=== PATIENT | female | born 1945 | race Caucasian/White ===

== ENCOUNTER 2017-06-05 12:45 | Emergency (ER) | payer MEDICARE ==
[~2017-06-05] VITALS: Ht 160 cm; Wt 59.0 kg
[2017-06-05 13:07] VITALS: BP 141/75; PULSE 72; RESP 20; TEMP 98; O2SAT 98
[2017-06-05 13:32] LABS: BILIRUBIN, URINE NEG (NEG); BLOOD, URINE NEG (NEG); GLUCOSE,URINE NEG (NEG); KETONE, URINE NEG (NEG); NITRITE,URINE NEG (NEG); PH, URINE 6.5 (5.0-8.5); URINE LEUKOCYTE ESTERASE NEG (NEG)
[2017-06-05 13:39] LABS: RBC, URINE 0-3 /hpf (0-3); SQUAMOUS EPITHELIAL CELL URINE 0-5 /hpf (0-5); URINE COLOR YELLOW (YELLW/STRAW)
[2017-06-05] MEDS ORDERED: FOLI400T PO (15:11)
[2017-06-05] MEDS ORDERED: METH2.5T PO (15:11)
[2017-06-05] MEDS ORDERED: PREDNISONE PO (15:11)
[2017-06-05] MEDS ORDERED: SODIUM CHLORIDE 0.9% FLUSH 10 ML FLUSH IV FLUSH PRN (16:15)
[2017-06-05] MEDS ORDERED: ONDANSETRON HCL 4 MG/2 ML VIAL IVP ONE (16:15)
--- NOTE | 2017-06-05 16:17 | PD ---
HPI Chief Complaint: Abdominal Pain Time Seen by Provider: 16:07 Travel History International Travel<30 days: No Contact w/Intl Traveler<30days: No Traveled to known affect area: No History of Present Illness HPI Patient comes in complaining of intermittent right lower quadrant abdominal pain ongoing since 2 AM this morning. Patient states it comes and goes. Describes the pain as sharp stabbing intense without radiation. States pain goes away without any intervention. Denies anything making it better or worse. Patient reports only abdominal surgeries for removal of a tumor in her stomach. Denies ever having appendectomy, hysterectomy, or cholecystectomy. Denies any loss change in bowel or bladder, chest pain, fevers, shortness of breath, back pain, nausea, vomiting, or previous episodes like this. Patient reports she continues to pass gas. [facility] Past Medical History Diminished Hearing: No Immune Disorder: Yes (EISINOPHYLLIC FACITIS) Tetanus Vaccination: Unknown ?: Not Past Surgical History Other Surgery: Yes (EXTERNAL STOMACH TUMOR REMOVED) Social History Alcohol Use: Yes (RARE) Tobacco Use: No Substance Use: No Allergies-Medications (Allergen,Severity, Reaction): Coded Allergies: No Known Allergies (Unverified , 06/05/17) Reported Meds & Prescriptions Reported Meds & Active Scripts Active Reported Folic Acid 0.4 Mg Tab 400 Mcg PO DAILY Methotrexate 2.5 Mg Tab 20 Mg PO Q7D [Prednisone ] 2.5 Mg PO DAILY Review of Systems Except as stated in HPI: all other systems reviewed are Neg Physical Exam Narrative GENERAL: Well-developed, well nourished, in no acute distress, and non-ill appearing. SKIN: Focused skin assessment warm and dry. HEAD: Atraumatic. Normocephalic. EYES: Pupils equal and round. EOMI. No scleral icterus. No injection or drainage. ENT: No nasal bleeding or discharge. Mucous membranes pink and moist. NECK: Trachea midline. No JVD. Supple. No nuclear rigidity. CARDIOVASCULAR: Regular rate and rhythm. No murmur appreciated. RESPIRATORY: No accessory muscle use. No respiratory distress. Clear to auscultation. Breath sounds equal bilaterally. GASTROINTESTINAL: Abdomen soft, non-tender, nondistended, and no guarding. Hepatic and splenic margins not palpable. Normal bowel sounds 4. No pulsatile mass. MUSCULOSKELETAL: No obvious deformities. No clubbing. No cyanosis. No edema. Full range of motion. NEUROLOGICAL: Awake and alert. No obvious cranial nerve deficits. Motor grossly within normal limits. Normal speech. PSYCHIATRIC: Appropriate mood and affect; insight and judgment normal. Data Data Last Documented VS Vital Signs Date Time Temp Pulse Resp B/P (MAP) Pulse Ox O2 Delivery O2 Flow Rate FiO2 06/05/17 18:15 69 16 161/68 (99) 96 06/05/17 16:19 Room Air 06/05/17 13:07 98.0 Orders Orders Urinalysis - C+S If Indicated (06/05/17 12:56) Complete Blood Count With Diff (06/05/17 16:07) Comprehensive Metabolic Panel (06/05/17 16:07) Lipase (06/05/17 16:07) Lactic Acid (06/05/17 16:07) Iv Access Insert/Monitor (06/05/17 16:07) Ecg Monitoring (06/05/17 16:07) Oximetry (06/05/17 16:07) Sodium Chloride 0.9% Flush (Ns Flush) (06/05/17 16:15) Ct Abd/Pel W Iv Contrast(Rout) (06/05/17 16:11) Prothrombin Time / Inr (Pt) (06/05/17 16:11) Act Partial Throm Time (Ptt) (06/05/17 16:11) Ondansetron Inj (Zofran Inj) (06/05/17 16:15) Diatrizoate Liq ( Gastroview Liq) (06/05/17 16:22) Oral Contrast - Adult (06/05/17 16:45) Iohexol 350 Inj (Omnipaque 350 Inj) (06/05/17 17:39) Ed Discharge Order (06/05/17 18:12) Labs Laboratory Tests Test 06/05/17 13:10 06/05/17 16:19 Urine Collection Type CLEAN CATCH Urine Color YELLOW Urine Turbidity CLEAR Urine pH 6.5 Urine Specific [place] 1.007 Urine Protein NEG mg/dL Urine Glucose (UA) NEG mg/dL Urine Ketones NEG mg/dL Urine Occult Blood NEG Urine Nitrite NEG Urine Bilirubin NEG Urine Leukocyte Esterase NEG Urine RBC 0-3 /hpf Urine Squamous Epithelial Cells 0-5 /hpf Microscopic Urinalysis Comment CULT NOT INDICATED Urine Collection Time 13:10 White Blood Count 4.9 TH/MM3 Red Blood Count 3.90 MIL/MM3 Hemoglobin 11.9 GM/DL Hematocrit 36.2 % Mean Corpuscular Volume 92.8 FL Mean Corpuscular Hemoglobin 30.5 PG Mean Corpuscular Hemoglobin Concent 32.9 % Red Cell Distribution Width 13.9 % Platelet Count 200 TH/MM3 Mean Platelet Volume 8.4 FL Neutrophils (%) (Auto) 67.3 % Lymphocytes (%) (Auto) 24.8 % Monocytes (%) (Auto) 6.6 % Eosinophils (%) (Auto) 0.5 % Basophils (%) (Auto) 0.8 % Neutrophils # (Auto) 3.4 TH/MM3 Lymphocytes # (Auto) 1.2 TH/MM3 Monocytes # (Auto) 0.3 TH/MM3 Eosinophils # (Auto) 0.0 TH/MM3 Basophils # (Auto) 0.0 TH/MM3 CBC Comment DIFF FINAL Differential Comment Prothrombin Time 9.8 SEC Prothromb Time International Ratio 1.0 RATIO Activated Partial Thromboplast Time 22.9 SEC Blood Urea Nitrogen 14 MG/DL Creatinine 0.74 MG/DL Random Glucose 94 MG/DL Total Protein 6.9 GM/DL Albumin 3.8 GM/DL Calcium Level 9.0 MG/DL Alkaline Phosphatase 55 U/L Aspartate Amino Transf (AST/SGOT) 46 U/L Alanine Aminotransferase (ALT/SGPT) 109 U/L Total Bilirubin 0.5 MG/DL Sodium Level 142 MEQ/L Potassium Level 4.0 MEQ/L Chloride Level 106 MEQ/L Carbon Dioxide Level 30.0 MEQ/L Anion Gap 6 MEQ/L Estimat Glomerular Filtration Rate 77 ML/MIN Lactic Acid Level 0.6 mmol/L Lipase 197 U/L [facility] Medical Decision Making Medical Screen Exam Complete: Yes Emergency Medical Condition: Yes Interpretation(s) Last Impressions Abdomen/Pelvis CT 06/05/17 1611 Signed Impressions: Service Date/Time: Monday, June 05, 2017 17:32 - CONCLUSION: Mildly prominent appendix without inflammatory changes, doubt appendicitis.. Simple liver cyst Small fibroid uterus. Gray Marin MD FACR Differential Diagnosis Appendicitis, ovarian cyst, colitis, SBO, mass, mesenteric ischemia, metabolic disturbance Narrative Course The patient presented with right sided abdominal pain. The patient appears comfortable and hydrated. Laboratory and radiologic evaluation with a contrasted CT scan of the abdomen and pelvis was performed to rule out appendicitis. Evaluation revealed no clinical evidence of acute appendicitis at this time. However the patient was given appendicitis warnings an informed of possible early appendicitis not detected. The patient was instructed to follow up here within the next 12-24 hours for re-evaluation. The patient is to return if worsens, pain worsens or changes, develop persistent fever, inability to tolerate fluids with or without vomiting, unable to establish follow up or as needed. There was no evidence of an acute, surgical abdomen at this time. There was no clinical evidence to support cholecystitis/cholelithiasis, pancreatitis, perforation of gastric ulcer, colitis, diverticulitis, obstruction, volvulus, early appendicitis, or hernial incarceration or strangulation at this time. There was no evidence to support vascular pathology such as AAA, mesenteric ischemia. There was also no clinical evidence by history, exam or risk factors to suggest atypical presentation of cardiac disease such as ACS, AMI or atypical angina. No evidence to suggest genitourinary etiology as well. During the course of the ED visit the patient was given IV Zofran, the patient noted improvement. The patient agreed with plan of care and management. Patient in no obvious distress upon re-evaluation. All pertinent laboratory/ Radiology result(s) discussed with patient/family. Discussed patient with Dr. Dixon, who saw and evaluated the patient and is in agreement with plan of care and disposition. Any questions/concerns in reference to patient diagnosis/ condition discussed and clarified prior to patient's discharge. Reinforced sheer importance of close follow up with patient's primary physician or primary care clinic. Instructed patient to return to ED immediately, if symptoms return/ worsen. Patient showed understanding of above instructions. Further instructions and recommendations were detailed in discharge paperwork. Patient ambulated without difficulty out of ED at discharge. Diagnosis Primary Impression: Right lower quadrant abdominal pain Additional Impressions: Liver cyst Uterine fibroid Qualified Codes: D25.9 - Leiomyoma of uterus, unspecified Patient Instructions: Abdominal Pain (ED), General Instructions, Uterine Fibroids (ED) Additional Instructions: Return here in 12-24 hours for recheck of your abdominal pain. Return sooner if symptoms get worse, persistent, fevers, inability to tolerate fluids, back pain, or for other concerns. Follow-up with your primary care physician regarding incidental findings noted on CT today. Disposition: 01 DISCHARGE HOME Condition: Stable Gerard Ramsey Jun 05, 2017 16:17
[2017-06-05 16:19] VITALS: RESP 16; O2SAT 98
[2017-06-05] MEDS ORDERED: DIATRIZOATE MEGLUM/DIATRIZOATE SOD 9 ML CUP ONE (16:22)
[2017-06-05 16:23] LABS: AUTOMATED NEUTROPHIL # 3.4 TH/MM3 (1.8-7.7); BASOPHIL % 0.8 % (0.0-2.0); EOSINOPHIL % 0.5 % (0.0-4.0); HEMATOCRIT 36.2 % (35.0-46.0); HEMOGLOBIN 11.9 GM/DL (11.6-15.3); LYMPH % 24.8 % (9.0-44.0); LYMPHOCYTE # 1.2 TH/MM3 (1.0-4.8); MEAN CELL VOLUME 92.8 FL (80.0-100.0); MEAN CORPUSCULAR HEMOGLOBIN 30.5 PG (27.0-34.0); MEAN CORPUSCULAR HGB CONC 32.9 % (32.0-36.0); MEAN PLATELET VOLUME 8.4 FL (7.0-11.0); MONO % 6.6 % (0.0-8.0); MONOCYTE # 0.3 TH/MM3 (0-0.9); NEUT % 67.3 % (16.0-70.0); PLATELET COUNT 200 TH/MM3 (150-450); RED CELL DISTRIBUTION WIDTH 13.9 % (11.6-17.2); WHITE BLOOD COUNT 4.9 TH/MM3 (4.0-11.0)
[2017-06-05 16:32] LABS: CHLORIDE 106 MEQ/L (98-107); SODIUM (NA) 142 MEQ/L (136-145)
[2017-06-05 16:37] LABS: ALBUMIN 3.8 GM/DL (3.4-5.0); BLOOD UREA NITROGEN 14 MG/DL (7-18); GLUCOSE,RANDOM 94 MG/DL (74-106); LIPASE 197 U/L (73-393)
[2017-06-05 16:40] LABS: ALT (GPT) 109 U/L (10-53); AST (GOT) 46 U/L (15-37); CREATININE 0.74 MG/DL (0.50-1.00); GLOMERULAR FILTRATION RATE 77 ML/MIN (>89)
[2017-06-05 16:41] LABS: TOTAL BILIRUBIN ADULT 0.5 MG/DL (0.2-1.0); TOTAL PROTEIN 6.9 GM/DL (6.4-8.2)
[2017-06-05 16:43] LABS: ALKALINE PHOSPHATASE 55 U/L (45-117)
[2017-06-05 16:56] LABS: PROTHROMBIN TIME - PATIENT 9.8 SEC (9.8-11.6)
[2017-06-05] MEDS ORDERED: IOHEXOL 350 MG/ML 10 ML VIAL (for RAD DIAG) IVCONTRAST ONE (17:39)
--- NOTE | 2017-06-05 17:53 | RADRPT ---
EXAM DATE/TIME: 06/05/2017 17:32 [facility] COMPARISON: No previous studies available for comparison. INDICATIONS : Right lower quadrant abdominal pain. IV CONTRAST: 100 cc Omnipaque 350 (iohexol) IV ORAL CONTRAST: Prescribed oral contrast ingested. RADIATION DOSE: 6.46 CTDIvol (mGy) MEDICAL HISTORY : Eosinophilic fasciitis SURGICAL HISTORY : External tumor removed from outside stomach. ENCOUNTER: Initial ACUITY: 1 day PAIN SCALE: 5/10 LOCATION: Right lower quadrant abdomen TECHNIQUE: Volumetric scanning of the abdomen and pelvis was performed. Using automated exposure control and ad justment of the mA and/or kV according to patient size, radiation dose was kept as low as reasonably achievable to obtain optimal diagnostic quality images. DICOM format image data is available electro nically for review and comparison. FINDINGS: Lung base are clear. 2 apparent simple cysts are seen in the liver largest left lobe measuring 1.6 cm Gallbladder is small and contracted. Spleen, pancreas, adrenals and kidneys are unremarkable There is no retroperitoneal adenopathy. There no inflammatory changes in the abdomen. Mildly prominent appendix is noted without inflammator y changes or enhancement, seen best series of 601 image 41 and 42. Index of suspicion is for appendi citis is very low. Fibroid uterus is noted, small in size There is no adnexal mass Bladder is unremarkable Abdominal wall intact There is no free fluid in the pelvis Review of bone windows reveals an hemangioma right lateral third of T11 Moderate degenerative changes in the lower lumbar spine, predominantly facet. CONCLUSION: Mildly prominent appendix without inflammatory changes, doubt appendicitis.. Simple liver cyst Small fibroid uterus. Gray Marin MD FACR on June 05, 2017 at 17:47 Board Certified Radiologist. This report was verified electronically.
[2017-06-05 18:15] VITALS: BP 161/68
--- NOTE | 2017-06-05 18:21 | PD ---
Data Data Last Documented VS Vital Signs Date Time Temp Pulse Resp B/P (MAP) Pulse Ox O2 Delivery O2 Flow Rate FiO2 06/05/17 16:19 16 98 Room Air 06/05/17 13:07 98.0 72 141/75 (97) Orders Orders Urinalysis - C+S If Indicated (06/05/17 12:56) Complete Blood Count With Diff (06/05/17 16:07) Comprehensive Metabolic Panel (06/05/17 16:07) Lipase (06/05/17 16:07) Lactic Acid (06/05/17 16:07) Iv Access Insert/Monitor (06/05/17 16:07) Ecg Monitoring (06/05/17 16:07) Oximetry (06/05/17 16:07) Sodium Chloride 0.9% Flush (Ns Flush) (06/05/17 16:15) Ct Abd/Pel W Iv Contrast(Rout) (06/05/17 16:11) Prothrombin Time / Inr (Pt) (06/05/17 16:11) Act Partial Throm Time (Ptt) (06/05/17 16:11) Ondansetron Inj (Zofran Inj) (06/05/17 16:15) Diatrizoate Liq ( Gastrobrandy Liq) (06/05/17 16:22) Oral Contrast - Adult (06/05/17 16:45) Iohexol 350 Inj (Omnipaque 350 Inj) (06/05/17 17:39) Ed Discharge Order (06/05/17 18:12) Labs Laboratory Tests Test 06/05/17 13:10 06/05/17 16:19 Urine Collection Type CLEAN CATCH Urine Color YELLOW Urine Turbidity CLEAR Urine pH 6.5 Urine Specific [place] 1.007 Urine Protein NEG mg/dL Urine Glucose (UA) NEG mg/dL Urine Ketones NEG mg/dL Urine Occult Blood NEG Urine Nitrite NEG Urine Bilirubin NEG Urine Leukocyte Esterase NEG Urine RBC 0-3 /hpf Urine Squamous Epithelial Cells 0-5 /hpf Microscopic Urinalysis Comment CULT NOT INDICATED Urine Collection Time 13:10 White Blood Count 4.9 TH/MM3 Red Blood Count 3.90 MIL/MM3 Hemoglobin 11.9 GM/DL Hematocrit 36.2 % Mean Corpuscular Volume 92.8 FL Mean Corpuscular Hemoglobin 30.5 PG Mean Corpuscular Hemoglobin Concent 32.9 % Red Cell Distribution Width 13.9 % Platelet Count 200 TH/MM3 Mean Platelet Volume 8.4 FL Neutrophils (%) (Auto) 67.3 % Lymphocytes (%) (Auto) 24.8 % Monocytes (%) (Auto) 6.6 % Eosinophils (%) (Auto) 0.5 % Basophils (%) (Auto) 0.8 % Neutrophils # (Auto) 3.4 TH/MM3 Lymphocytes # (Auto) 1.2 TH/MM3 Monocytes # (Auto) 0.3 TH/MM3 Eosinophils # (Auto) 0.0 TH/MM3 Basophils # (Auto) 0.0 TH/MM3 CBC Comment DIFF FINAL Differential Comment Prothrombin Time 9.8 SEC Prothromb Time International Ratio 1.0 RATIO Activated Partial Thromboplast Time 22.9 SEC Blood Urea Nitrogen 14 MG/DL Creatinine 0.74 MG/DL Random Glucose 94 MG/DL Total Protein 6.9 GM/DL Albumin 3.8 GM/DL Calcium Level 9.0 MG/DL Alkaline Phosphatase 55 U/L Aspartate Amino Transf (AST/SGOT) 46 U/L Alanine Aminotransferase (ALT/SGPT) 109 U/L Total Bilirubin 0.5 MG/DL Sodium Level 142 MEQ/L Potassium Level 4.0 MEQ/L Chloride Level 106 MEQ/L Carbon Dioxide Level 30.0 MEQ/L Anion Gap 6 MEQ/L Estimat Glomerular Filtration Rate 77 ML/MIN Lactic Acid Level 0.6 mmol/L Lipase 197 U/L [facility] Supervised Visit with BRENDEN: Yes Narrative Course The history, exam, and medical decision-making in the associated mid-level provider note were completed with my assistance. I reviewed and agree with the findings presented. I attest that I had a [id number] encounter with the patient on the same day, and personally performed and documented my assessment and findings in the medical record. *My assessment and Findings: 72 year-old woman, presents with some intermittent mild right lower quadrant abdominal pain that started last night. She describes very intermittent symptoms, not characteristic classic for appendicitis. Sounds almost like maybe renal lithiasis or renal colic. She has no tenderness. She feels better now but she is a benign exam. She had no associated symptoms. No real fevers. Labs are unremarkable. CT scan shows appendix is a little bit dilated but otherwise normal. I spoke with Can, the PA. We'll discuss the risk of early appendicitis with the patient, recommend return immediately for any worsening symptoms, repeat evaluation in 24 hours. Diagnosis Primary Impression: Right lower quadrant abdominal pain Additional Impressions: Uterine fibroid Qualified Codes: D25.9 - Leiomyoma of uterus, unspecified Liver cyst Referrals: Primary Care Physician call for appointment Patient Instructions: General Instructions, Uterine Fibroids (ED), Abdominal Pain (ED) Departure Forms: Tests/Procedures Additional Instruction: Return here in 12-24 hours for recheck of your abdominal pain. Return sooner if symptoms get worse, persistent, fevers, inability to tolerate fluids, back pain, or for other concerns. Follow-up with your primary care physician regarding incidental findings noted on CT today. Disposition: 01 DISCHARGE HOME Condition: Stable Lukas Dixon MD Jun 05, 2017 18:21
[2017-06-06] MEDS ORDERED: PRED2.5T PO (12:22)
== END 2017-06-05 18:22 | disposition home or self-care (01) ==
LOC: PHED 12:45 → PHEFT 18:22
DX: R10.31 Right lower quadrant pain (principal); D25.9 Leiomyoma of uterus, unspecified; K76.89 Other specified diseases of liver; M35.4 Diffuse (eosinophilic) fasciitis
CPT/HCPCS: 74177; 80053; 81001; 83605; 83690; 85025; 85610; 85730; 96374; 99285; J2405; Q9963; Q9967